=== PATIENT | male | born 1975 | race Caucasian/White ===

== ENCOUNTER 2023-10-14 12:49 | Emergency (ER) | payer MEDICARE, SELFPAY ==
[2023-10-14 12:59] VITALS: BP 159/106
[2023-10-14 14:02] VITALS: BMI 38.0
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
[2023-10-14 17:04] VITALS: BP 156/99
== END 2023-10-14 17:06 | disposition home or self-care (01) ==
LOC: EMR 12:49
PROVIDERS: EMERGENCY PHYSICIAN Emergency Medicine; FAMILY PHYSICIAN Internal Medicine
DX: S70.01XA Contusion of right hip, initial encounter (principal); V00.811A Fall from moving wheelchair (powered), initial encounter; Y92.008 Other place in unspecified non-institutional (private) residence as the place of occurrence of the external cause; R03.0 Elevated blood-pressure reading, without diagnosis of hypertension; E78.5 Hyperlipidemia, unspecified; M19.90 Unspecified osteoarthritis, unspecified site; K57.90 Diverticulosis of intestine, part unspecified, without perforation or abscess without bleeding; E11.9 Type 2 diabetes mellitus without complications; Z96.641 Presence of right artificial hip joint; Z88.2 Allergy status to sulfonamides; Z88.8 Allergy status to other drugs, medicaments and biological substances; Z88.5 Allergy status to narcotic agent; Z91.013 Allergy to seafood
CPT/HCPCS: 99283; 73502

== ENCOUNTER 2023-11-14 10:28 | Emergency (ER) | payer MEDICARE, SELFPAY ==
[2023-11-14 10:29] VITALS: BP 142/89
[2023-11-14 10:52] VITALS: BMI 35.1
[2023-11-14] MEDS: DILAUDID 2 MG PO ×2 (12:03→12:58)
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
== END 2023-11-14 13:29 | disposition home or self-care (01) ==
LOC: EMR 10:28
PROVIDERS: EMERGENCY PHYSICIAN Emergency Medicine; FAMILY PHYSICIAN Internal Medicine
DX: S70.01XA Contusion of right hip, initial encounter (principal); W19.XXXA Unspecified fall, initial encounter
CPT/HCPCS: 99283; 73502